=== PATIENT | female | born 1975 | race Caucasian/White ===

== ENCOUNTER 2016-03-30 08:36 | Emergency (ER) | payer BC ==
[2016-03-30 09:09] VITALS: BP 146/92
--- NOTE | 2016-03-30 09:54 | UC ---
Respiratory Complaint HPI - HPI Summary HPI Summary: 3d cough, congestion, sinus drainage, malaise, body aches. ill with same. Smoker. No asthma. Diabetic who does not take meds or check BG "it doesn' t make any difference." Refuses BG here today. - History of Current Complaint Chief Complaint: UCRespiratory Stated Complaint: THROAT,COUGH,ACHY Time Seen by Provider: 03/30/16 09:43 Hx Obtained From: Patient Hx Last Menstrual Period: 03/06/16 Onset/Duration: Gradual Onset, Lasting Days - 3 Timing: Constant Severity Initially: Mild Severity Currently: Mild Character: Cough: Productive - yellow, scant Aggravating Factors: Recumbent Position Alleviating Factors: Nothing Associated Signs And Symptoms: Positive: Dyspnea, Chills, URI, Nasal Congestion , Hoarseness, Sinus Discomfort Related History: Similar Episode/Dx as: - "bronchitis" - Risk Factors Pulmonary Embolism Risk Factors: Negative Cardiac Risk Factors: Diabetes Pseudomonas Risk Factors: Negative Tuberculosis Risk Factors: Negative - Allergies/Home Medications Allergies/Adverse Reactions: Allergies Allergy/AdvReac Type Severity Reaction Status Date / Time Morphine Allergy Itching Verified 03/30/16 09:01 Penicillins Allergy Unknown Verified 03/30/16 09:01 Reaction Details Home Medications: Home Medications Ibuprofen [Advil] 400 mg PO Q4H PRN 03/30/16 [History Confirmed 03/30/16] PMH/Surg Hx/FS Hx/Imm Hx Endocrine History Of: Reports: Diabetes - insulin dependent - Surgical History Surgical History: Yes Surgery Procedure, Year, and Place: plate in pelvis. stephen in leg - Family History Known Family History: Positive: Diabetes - Social History Occupation: Employed Full-time Alcohol Use: None Substance Use Type: None Smoking Status (MU): Light Every Day Tobacco Smoker Type: Cigarettes Amount Used/How Often: 6 cigarettes daily Length of Time of Smoking/Using Tobacco: started ~ age 19 - Immunization History Most Recent Influenza Vaccination: not this season Review of Systems Constitutional: Chills, Fatigue Skin: Negative Eyes: Negative ENT: Sore Throat, Nasal Discharge Respiratory: Shortness Of Breath, Cough Cardiovascular: Negative Gastrointestinal: Negative Genitourinary: Negative Motor: Negative Neurovascular: Negative Musculoskeletal: Negative Neurological: Negative Psychological: Negative All Other Systems Reviewed And Are Negative: Yes Physical Exam Triage Information Reviewed: Yes Appearance: Well-Appearing, No Pain Distress, Well-Nourished, Obese Vital Signs: Initial Vital Signs Temp 99 F 03/30/16 09:03 Pulse 101 03/30/16 09:03 Resp 18 03/30/16 09:03 BP 146/92 03/30/16 09:03 Pulse Ox 98 03/30/16 09:03 Vital Signs Reviewed: Yes Eye Exam: Normal Eyes: Positive: Conjunctiva Clear ENT: Positive: Hearing grossly normal, Pharynx normal, Nasal congestion, TMs normal, Muffled/hoarse voice - hoarse. Negative: Tonsillar swelling, Tonsillar exudate, Trismus Neck exam: Normal Respiratory Exam: Normal Respiratory: Positive: Lungs clear, Normal breath sounds, No respiratory distress, No accessory muscle use Cardiovascular Exam: Normal Musculoskeletal Exam: Normal Neurological Exam: Normal Psychological Exam: Normal Skin Exam: Normal UC Diagnostic Evaluation - Laboratory O2 Sat by Pulse Oximetry: 98 Respiratory Course/Dx - Differential Dx/Diagnosis Differential Diagnosis/HQI/PQRI: Bronchitis, Lower Resp Infection, Sinusitis Provider Diagnoses: URI Discharge - Discharge Plan Condition: Stable Disposition: HOME Prescriptions: Albuterol HFA INHALER* [Ventolin HFA Inhaler*] 1 - 2 puff INH Q4H PRN #1 mdi PRN Reason: cough, wheezing Azithromycin TAB* [Zithromax TAB (Z-SOURAV) 250 mg #6 tabs] 2 tab PO .TODAY, THEN 1 DAILY #1 sourav Benzonatate CAP* [Tessalon CAP*] 100 mg PO TID PRN #30 cap PRN Reason: Cough Patient Education Materials: Upper Respiratory Infection (ED) Referrals: Ofelia Blackwell [Primary Care Provider] -
== END 2016-03-30 09:54 | disposition home or self-care (01) ==
LOC: UCCORT 08:36
DX: J06.9 Acute upper respiratory infection, unspecified (principal); Z88.5 Allergy status to narcotic agent; Z88.0 Allergy status to penicillin; E11.9 Type 2 diabetes mellitus without complications; Z79.4 Long term (current) use of insulin; F17.210 Nicotine dependence, cigarettes, uncomplicated
CPT/HCPCS: 99212; G0463

== ENCOUNTER 2018-02-14 09:16 | Emergency (ER) | payer BC ==
[2018-02-14 09:57] VITALS: BP 124/80
--- NOTE | 2018-02-14 10:21 | UC ---
Respiratory Complaint HPI - HPI Summary HPI Summary: patient has had a cough fro the past 2 weeks, now having left sided pain and pressure in the sinus and eye area. ear pressure in left ear - History of Current Complaint Chief Complaint: UCRespiratory Stated Complaint: COUGH, CONGESTION Time Seen by Provider: 02/14/18 09:57 Hx Obtained From: Patient Hx Last Menstrual Period: 01/21/18 ?: No Onset/Duration: Sudden Onset, Lasting Weeks - 2 Timing: Constant Severity Initially: Mild Severity Currently: Mild Pain Intensity: 0 Character: Cough: Productive Aggravating Factors: Exertion, Deep Breaths Alleviating Factors: Nothing Associated Signs And Symptoms: Positive: Wheezing, Nasal Congestion, Sinus Discomfort - Allergies/Home Medications Allergies/Adverse Reactions: Allergies Allergy/AdvReac Type Severity Reaction Status Date / Time morphine Allergy Itching Verified 02/14/18 09:50 Penicillins Allergy Unknown Verified 02/14/18 09:50 Reaction Details Home Medications: Home Medications Atorvastatin* [Lipitor*] 10 mg PO 1700 02/14/18 [History Confirmed 02/14/18] Dulaglutide [Trulicity] 1.5 mg SQ WEEKLY 02/14/18 [History Confirmed 02/14/18] Glipizid/Metformin 2.5/500(NF) [Metaglip 2.5/500(NF)] 1 tab PO DAILY 02/14/18 [ History Confirmed 02/14/18] glipiZIDE TAB* [Glucotrol TAB*] 5 mg PO DAILY 02/14/18 [History Confirmed ] PMH/Surg Hx/FS Hx/Imm Hx Previously Healthy: Yes Endocrine History: Diabetes - Surgical History Surgical History: Yes Surgery Procedure, Year, and Place: plate in pelvis. stephen in leg - Family History Known Family History: Positive: Diabetes - Social History Alcohol Use: None Substance Use Type: None Smoking Status (MU): Light Every Day Tobacco Smoker Type: Cigarettes Amount Used/How Often: 6 cigarettes daily Length of Time of Smoking/Using Tobacco: started ~ age 19 - Immunization History Most Recent Influenza Vaccination: not this season Review of Systems All Other Systems Reviewed And Are Negative: Yes Constitutional: Positive: Fatigue Skin: Positive: Negative Eyes: Positive: Negative ENT: Positive: Sore Throat, Ear Ache, Nasal Discharge Respiratory: Positive: Shortness Of Breath, Cough Cardiovascular: Positive: Negative Gastrointestinal: Positive: Negative Genitourinary: Positive: Negative Motor: Positive: Negative Neurovascular: Positive: Negative Musculoskeletal: Positive: Myalgia Neurological: Positive: Headache Psychological: Positive: Negative Is Patient Immunocompromised?: Yes - diabetic Physical Exam Triage Information Reviewed: Yes Appearance: Well-Nourished, Ill-Appearing, Pain Distress Vital Signs: Initial Vital Signs Temp 97.5 F 02/14/18 09:53 Pulse 104 02/14/18 09:53 Resp 18 02/14/18 09:53 BP 124/80 02/14/18 09:53 Pulse Ox 100 02/14/18 09:53 Vital Signs Reviewed: Yes Eye Exam: Normal ENT Exam: Normal ENT: Positive: Pharyngeal erythema, TM bulging - left, Sinus tenderness Dental Exam: Normal Neck exam: Normal Neck: Positive: Supple, Nontender, No Lymphadenopathy Respiratory Exam: Normal Respiratory: Positive: Chest non-tender, Lungs clear, Normal breath sounds Cardiovascular Exam: Normal Cardiovascular: Positive: RRR, No Murmur, Pulses Normal Abdominal Exam: Normal Abdomen Description: Positive: Nontender, No Organomegaly, Soft Bowel Sounds: Positive: Present Musculoskeletal Exam: Normal Neurological Exam: Normal Psychological Exam: Normal Skin Exam: Normal UC Diagnostic Evaluation - Laboratory O2 Sat by Pulse Oximetry: 100 Respiratory Course/Dx - Course Course Of Treatment: hx obtained, exam performed ,meds reviewed, treated for sinusitis and bronchitis - Differential Dx/Diagnosis Differential Diagnosis/HQI/PQRI: Aspiration, Asthma, Bronchitis, Influenza, Laryngitis, Sinusitis Provider Diagnosis: Bronchitis, Sinusitis, acute Discharge - Sign-Out/Discharge Documenting (check all that apply): Patient Departure All imaging exams completed and their final reports reviewed: No Studies - Discharge Plan Condition: Stable Disposition: HOME Prescriptions: Azithromyxin SOURAV (NF) [Z-Sourav (Zithromax) 250 mg tabs #6] 2 tab PO .TODAY, THEN 1 DAILY #6 tab Benzonatate CAP* [Tessalon 100 MG CAP*] 100 mg PO TID PRN #21 cap PRN Reason: Cough predniSONE [Prednisone 20 MG TAB] 40 mg PO DAILY #14 tablet Patient Education Materials: Acute Bronchitis (ED) Referrals: Sola Meneses, [employer]TRA[employer] PH[employer]GRAPHER [Primary Care Provider] - Additional Instructions: 1. take the medication as prescribed. 2. Increase fluid intake and get rest 3. Prednisone can temporarily raise your blood sugar. 4. FOllow up with Sola Randhawa as needed. - Billing Disposition and Condition Condition: STABLE Disposition: Home - Attestation Statements Provider Attestation: Per institutional requirements, I have reviewed the chart, however, I was not consulted specifically or made aware of this patient by the midlevel provider. I did not personally evaluate, interact with , or disposition this patient.
== END 2018-02-14 10:30 | disposition home or self-care (01) ==
LOC: UCCORT 09:16
DX: J40 Bronchitis, not specified as acute or chronic (principal); J01.90 Acute sinusitis, unspecified; Z88.5 Allergy status to narcotic agent; E11.9 Type 2 diabetes mellitus without complications; Z79.84 Long term (current) use of oral hypoglycemic drugs; F17.210 Nicotine dependence, cigarettes, uncomplicated; Z88.0 Allergy status to penicillin
CPT/HCPCS: 99212; G0463

== ENCOUNTER 2018-10-27 12:16 | Emergency (ER) | payer BC ==
[2018-10-27 12:57] VITALS: BP 109/70
--- NOTE | 2018-10-27 13:03 | UC ---
Throat Pain/Nasal Naveen HPI - HPI Summary HPI Summary: 43 y/o female presents to the urgent care c/o nasal congestion w/ green nasal discharge, sinus pressure and pain, moderate green PND getting worse for the past week. Pt states she hasn't taken any OTC medication since she thinks it will interfere w/ her medication for DM and CHF. This morning her sore throat is worse w/ a burning sensation and painful to swallow. Pain is 4/10. Pt denies fever, SOB, chest pain, dizziness, abdominal pain, N/V/, neck pain or rash. - History of Current Complaint Chief Complaint: UCGeneralIllness Stated Complaint: SORE THROAT COUGH HEADACHE Time Seen by Provider: 10/27/18 13:02 Hx Obtained From: Patient Hx Last Menstrual Period: 01/21/18 Onset/Duration: Gradual Onset, Lasting Weeks - 1 week, Still Present, Worse Since - 3 days ago w/ green PND and moderate nasal congestion Severity: Moderate Pain Intensity: 4 - sinus pain ans sore throat Pain Scale Used: 0-10 Numeric Cough: Sputum Appears - yellowish Associated Signs & Symptoms: Positive: Sinus Discomfort, Nasal Discharge - green. Negative: Dysphagia, Wheezing, Hoarseness, Fever - Epiglottits Risk Factors Epiglottis Risk Factors: Negative - Allergies/Home Medications Allergies/Adverse Reactions: Allergies Allergy/AdvReac Type Severity Reaction Status Date / Time morphine Allergy Itching Verified 10/27/18 12:57 Penicillins Allergy Unknown Verified 10/27/18 12:57 Reaction Details Home Medications: Home Medications Aspirin 81 mg CHEW TAB* 81 mg PO DAILY 10/27/18 [History Confirmed 10/27/18] Clopidogrel TAB* [Plavix TAB*] 75 mg PO DAILY 10/27/18 [History Confirmed ] Dulaglutide [Trulicity] mg SQ 10/27/18 [History] Furosemide TAB* [Lasix TAB*] 40 mg PO PRN 10/27/18 [History] Insulin LISPRO* [HumaLOG*] 1 unit SUBCUT TID 10/27/18 [History Confirmed ] Lisinopril [Lisinopril 2.5 MG-] 2.5 mg PO DAILY 10/27/18 [History Confirmed 09/07] Metoprolol Succinate XL TAB* [Toprol XL TAB*] 25 mg PO DAILY 10/27/18 [History Confirmed 10/27/18] metFORMIN* [Glucophage 500 MG TAB *] 500 mg PO DAILY 10/27/18 [History Confirmed 10/27/18] PMH/Surg Hx/FS Hx/Imm Hx Previously Healthy: Yes Endocrine History: Diabetes Cardiovascular History: Cardiac Disease, Hypertension, Congestive Heart Failure - Surgical History Surgical History: Yes Surgery Procedure, Year, and Place: plate in pelvis. stephen in leg. 3 cardiac stents placed - Family History Known Family History: Positive: Cardiac Disease, Diabetes - Social History Occupation: Employed Full-time Lives: With Family Alcohol Use: None Substance Use Type: None Smoking Status (MU): Former Smoker Type: Cigarettes Amount Used/How Often: 6 cigarettes daily Length of Time of Smoking/Using Tobacco: started ~ age 19 Have You Smoked in the Last Year: Yes When Did the Patient Quit Smoking/Using Tobacco: February 2018 - Immunization History Most Recent Influenza Vaccination: not this season Review of Systems All Other Systems Reviewed And Are Negative: Yes Constitutional: Positive: Negative Skin: Positive: Negative Eyes: Positive: Negative ENT: Positive: Sore Throat, Ear Ache - B/L ear pressure, Nasal Discharge - green , Sinus Congestion, Sinus Pain/Tenderness, Other - moderate green PND Respiratory: Positive: Cough - productive w/ yellowish phlemg at times Cardiovascular: Positive: Negative Gastrointestinal: Positive: Negative Genitourinary: Positive: Negative Motor: Positive: Negative Neurovascular: Positive: Negative Musculoskeletal: Positive: Negative Neurological: Positive: Negative Psychological: Positive: Negative Is Patient Immunocompromised?: No Physical Exam - Summary Physical Exam Summary: Vitals: reviewed General: Well developed, well-nourished male patient with NAD. Head and face: Normocephalic and atraumatic, Positive tenderness over the frontal and maxillary sinuses.. Eyes: PERRLA, EOMI x 2. Normal conjunctiva. No eye discharge. ENT: Ears and TM with normal limits. Nose: edematous and erythematous nasal mucosa with with yellowish discharge and erythematous mucosa. Pharynx with erythema, no exudate. Moderate green PND Neck: Supple, no JVD, no carotid bruits and no lymphadenopathy. Lungs: clear, no rales, no rhonchi, no wheezes. CVS: RRR, S1 and S2 present no murmurs or gallops appreciated. Abdomen: soft nontender with positive bowel sounds. Extremities: no edema noted. Neuro: WNL. Skin: warm and dry Triage Information Reviewed: Yes Vital Signs: Initial Vital Signs Temp 98.1 F 10/27/18 12:48 Pulse 95 10/27/18 12:48 Resp 20 10/27/18 12:48 BP 109/70 10/27/18 12:48 Pulse Ox 97 10/27/18 12:48 Throat Pain/Nasal Course/Dx - Course Course Of Treatment: 43 y/o female presents to the urgent care c/o nasal congestion w/ green nasal discharge, sinus pressure and pain, moderate green PND getting worse for the past week. Pt states she hasn't taken any OTC medication since she thinks it will interfere w/ her medication for DM and CHF. This morning her sore throat is worse w/ a burning sensation and painful to swallow. Pain is 4/10. Pt denies fever, SOB, chest pain, dizziness, abdominal pain, N/V/, neck pain or rash. Pt is hemodynamically stable, A&OX#, vitals: WNL. Pt with PMHX of DM type II and 1 week of symptoms getting worse w/o moderated green PND. Pt PCN allergic . Pt Rx Doxycycline PO and flonase nasal spray as directed below. Discharge instructions explained to Pt. Advised to Return to the clinic or PCP if symptoms do not improve.Pt understood and agreed with plan of care. - Differential Dx/Diagnosis Differential Diagnosis/HQI/PQRI: Influenza, Laryngitis, Otitis Media, Pharyngitis, Sinusitis, Tonsillitis, URI Provider Diagnosis: Acute bacterial sinusitis Discharge ED - Sign-Out/Discharge Documenting (check all that apply): Patient Departure - D/C home All imaging exams completed and their final reports reviewed: No Studies - Discharge Plan Condition: Stable Disposition: HOME Prescriptions: DOXYcycline CAP(*) [DOXYcycline 100MG CAP(*)] 100 mg PO BID #14 cap Fluticasone NASAL SPRAY 50MCG* [Flonase NASAL SPRAY 50MCG*] 2 spray BOTH NARES DAILY #1 btl Patient Education Materials: Sinusitis (ED) Referrals: Sola Meneses, CONTRACTING OFFICER [Primary Care Provider] - 3 Days Additional Instructions: 1- Please increase fluid intake and rest. take full course of antibiotics to avoid resistance. Take yogurts w/ probiotics or Culturelle to protect your GI system 2-Use Flonase as directed to help drain fluid. Also buy saline drops to clear sinuses 3-Please f/u w/ your PCP in 3 days if symptoms do not improve for further management and treatment 4- Rapid strep: negative - Billing Disposition and Condition Condition: STABLE Disposition: Home
== END 2018-10-27 13:31 | disposition home or self-care (01) ==
LOC: UCCORT 12:16
DX: J01.90 Acute sinusitis, unspecified (principal); B96.89 Other specified bacterial agents as the cause of diseases classified elsewhere; E11.9 Type 2 diabetes mellitus without complications; I11.0 Hypertensive heart disease with heart failure; I50.9 Heart failure, unspecified; Z88.0 Allergy status to penicillin; Z79.4 Long term (current) use of insulin; Z79.84 Long term (current) use of oral hypoglycemic drugs; Z87.891 Personal history of nicotine dependence
CPT/HCPCS: 87651; 99212; G0463